=== PATIENT | female | born 1970 | race Two or more races ===

== ENCOUNTER 2019-10-02 15:00 | Emergency (ER) | payer BC ==
--- NOTE | 2019-10-02 15:16 | PDOC ---
History of Present Illness - General Chief Complaint: Substance Abuse Stated Complaint: ALCOHOL WITHDRAWAL Time Seen by Provider: 10/02/19 15:14 History Source: Patient Exam Limitations: No Limitations - History of Present Illness Initial Comments: 10/02/19 15:30 49yF w PMHx alcohol abuse presenting w 1d hot flashes, diaphoresis, tremors, nausea/vomiting, diarrhea. Stopped drinking alcohol 2d ago, was drinking 1.5-2 bottles of wine daily before. Also has 1 week of pink urine. Also lives at home w son who has diarrhea. Did not take any meds for symptoms. Denies fever, cough , chest pain, hallucination, vision change, ABD pain. Quit alcohol 2yrs ago No PCP, open to going to detox. Past History - Past Medical History Allergies/Adverse Reactions: Allergies Allergy/AdvReac Type Severity Reaction Status Date / Time No Known Allergies Allergy Verified 10/02/19 15:11 Home Medications: Ambulatory Orders Chlordiazepoxide [Librium -] 25 mg PO QID #28 capsule MDD 4 10/02/19 Review of Systems - Review of Systems Constitutional: Yes: Diaphoresis, Fever. No: Chills HEENTM: No: Eye Pain, Nose Pain, Mouth Pain Respiratory: No: Cough, Shortness of Breath Cardiac (ROS): No: Chest Pain, Lightheadedness, Palpitations ABD/GI: Yes: Diarrhea, Nausea, Vomiting. No: Abdominal Distended : No: Burning, Dysuria Musculoskeletal: No: Back Pain, Joint Pain Integumentary: No: Bruising, Dryness Neurological: Yes: Tremors. No: Headache, Seizure Psychiatric: No: Anxiety, Depression Endocrine: No: Intolerance to Cold, Intolerance to Heat Hematologic/Lymphatic: No: Anemia, Blood Clots *Physical Exam - Physical Exam General Appearance: Yes: Nourished, Appropriately Dressed, Mild Distress HEENT: positive: EOMI, KERI, Normal Voice, Hearing Grossly Normal. negative: Scleral Icterus (R), Scleral Icterus (L), Rhinorrhea Respiratory/Chest: positive: Lungs Clear, Normal Breath Sounds. negative: Chest Tender, Respiratory Distress Cardiovascular: positive: Regular Rhythm, S1, S2, Tachycardia. negative: Edema , Murmur Gastrointestinal/Abdominal: positive: Normal Bowel Sounds, Flat, Soft. 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 negative: Numbness, Confused, Disoriented ED Treatment Course - LABORATORY CBC & Chemistry Diagram: 10/02/19 16:30 10/02/19 15:55 Medical Decision Making - Medical Decision Making 10/02/19 16:10 49yF w PMHx alcohol abuse presenting w 1d hot flashes, diaphoresis, tremors, nausea/vomiting, diarrhea after stopped drinking wine 2d ago d/t alcohol withdrawal. Given 1L banana bag, thiamine, ativan, zofran, librium x2 DC home w PCP referral, [facility], librium prescription Signed out to night team - DC home after fluids completed Discharge - Discharge Information Problems reviewed: Yes Clinical Impression/Diagnosis: Alcohol withdrawal Qualifiers: Complication of substance-induced condition: uncomplicated Qualified Code(s): F10.230 - Alcohol dependence with withdrawal, uncomplicated Condition: Improved Disposition: HOME - Admission No - Additional Discharge Information Prescriptions: Chlordiazepoxide [Librium -] 25 mg PO QID #28 capsule MDD 4 - Follow up/Referral Referrals: Marcial Robles MD [Staff Physician] - - Patient Discharge Instructions Patient Printed Discharge Instructions: DI for Drug or Alcohol Withdrawal Additional Instructions: Take the prescribed Librium as directed until your symptoms resolve Drink lots of water. Stay away from alcohol Follow up with the referred primary care doctor Consider [facility] for alcohol detox. [facility] [id number] - Post Discharge Activity
[2019-10-02 15:18] VITALS: TEMP 98.8; BMI 17.9
--- NOTE | 2019-10-02 15:33 | PDOC ---
Attending Attestation - Resident Resident Name: David Marrero - ED Attending Attestation I have performed the following: I have examined & evaluated the patient, The case was reviewed & discussed with the resident, I agree w/resident's findings & plan, Exceptions are as noted - HPI HPI: 10/02/19 18:18 Chronic alcohol abuse. Drinking 1-1/2-2 bottles of wine a day for years. Stopped drinking 2 days ago because it was interfering with her family life. In the interim she has been able to take care of her children adequately and maintain her relationship with her . She quit drinking on her own once before, approximately 2 years ago, and remained sober for approximately 1 month , but has been drinking daily since. Present symptoms include nausea, vomiting, diarrhea, hot flashes, diaphoresis, shakiness. There have been no hallucinations, confusion, decreased level of consciousness, or focal neurologic signs or symptoms. No other significant medical or surgical problems and no medications. - Physicial Exam PE: 10/02/19 18:23 Alert and oriented somewhat thin and cachectic appearing female but in no acute distress. She does not appear tremulous at present. She is cooperative, coherent, but affect is somewhat flat and she appears tearful at times. Afebrile, vital signs normal except for mildly elevated blood pressure of 150/ 108. PERRLA 4 mm, fundi benign with sharp disc margins and good central venous pulsations, no AV nicking or arteriolar narrowing, no hemorrhages or exudates. Conjunctivae clear. EOMs full without diplopia. Visual isbell intact to confrontation ENT clear Neck supple without bruit mass or nodes Chest clear, full breath sounds bilaterally CV S1-S2 normal without murmur rub or gallop pulses full and symmetric no JVD or edema no bruits. Regular rate, no tachycardia Abdomen nondistended. Bowel sounds normal. Soft without mass tenderness organomegaly Neurological: C2 to 12 intact. Strength full and symmetric. No focal sensory or motor deficits. DTRs 2+ symmetric. Cerebellar intact. Gait stable and unimpaired. No asterixis, spiders, or palmar erythema 10/02/19 18:24 - Medical Decision Making 10/02/19 18:26 Assessment: Mild to moderate alcohol withdrawal symptoms. No sign of delirium or significant psychological symptoms other than mild depression. Plan: IV fluids, thiamine, folate, and multivitamin supplementation, benzodiazepines, referral to treatment center. Declines admission, but agrees to consult [facility] or other facility as soon as possible.
[2019-10-02] MEDS ORDERED: THIAMINE HCL 200 MG/2 ML VIAL IM ONE (15:49)
[2019-10-02] MEDS ORDERED: FOLIC ACID INJECTION - 1 MG, THIAMINE HCL 100 MG, MULTIVIT INJECTION ADULT 10 ML in SOD... IVPB ONE (15:49)
[2019-10-02] MEDS ORDERED: ONDANSETRON 4 MG/2 ML VIAL IVPUSH ONE (15:49)
[2019-10-02] MEDS ORDERED: FOLIC ACID 5 MG/1 ML ONE (16:11)
[2019-10-02] MEDS ORDERED: THIAMINE HCL 200 MG/2 ML VIAL ONE (16:11)
[2019-10-02] MEDS ORDERED: ONDANSETRON 4 MG/2 ML VIAL ONE (16:11)
[2019-10-02] MEDS ORDERED: MULTIVIT INJ. ADULT COMBO WITH VIT K 1 COMBO 10 ML VIAL IV ONE (16:12)
[2019-10-02] MEDS ORDERED: LORazepam 2 MG/ML SDV VIAL ONE (16:45)
[2019-10-02 16:53] LABS: BASO % 0.4 % (0-2.0); HEMATOCRIT 34.7 % (32.4-45.2); HEMOGLOBIN 11.9 GM/dl (10.7-15.3); LYMPH % 4.6 % (8-40); MCH 36.4 pg (25.7-33.7); MCHC 34.2 g/dl (32.0-36.0); MEAN CELL VOLUME 106.3 fl (80-96); MEAN PLT VOLUME 9.3 fl (7.5-11.1); MONO % 6.4 % (3.8-10.2); NEUT % 88.6 % (42.8-82.8); PLATELET COUNT 128 K/MM3 (134-434); RBC 3.26 M/mm3 (3.60-5.2); RDW 14.3 % (11.6-15.6); WHITE BLOOD COUNT 7.3 K/mm3 (4.0-10.8)
[2019-10-02 16:59] LABS: INR 1.12 (0.82-1.09); PROTHROMBIN TIME (PATIENT) 12.5 SEC (10.2-13.0)
[2019-10-02 17:06] LABS: ALBUMIN 4.2 g/dl (3.4-5.0); ALK PHOS 173 U/L (45-117); ANION GAP 13 MMOL/L (8-16); BILIRUBIN,TOTAL 2.9 mg/dl (0.2-1); CALCIUM 8.7 mg/dl (8.5-10); CHLORIDE 94 mmol/L (98-107); CO2 23 mmol/L (21-32); CREATININE 0.4 mg/dl (0.55-1.3); GLUCOSE,RANDOM 122 mg/dl (74-106); SGPT/ALT 65 U/L (13-61); SODIUM 130 mmol/L (136-145); TOT PROT 7.8 g/dl (6.4-8.2)
[2019-10-02 17:07] LABS: POTASSIUM 4.1 mmol/L (3.5-5.1)
[2019-10-02 17:17] LABS: EPITHELIAL CELLS RARE /hpf
[2019-10-02 17:18] LABS: SGOT/AST 376 U/L (15-37)
[2019-10-02 17:56] LABS: COCAINE, UR NEGATIVE ng/ml (CUTOFF=300); METHADONE, UR NEGATIVE ng/ml (CUTOFF=300); OPIATES, URI NEGATIVE ng/ml (CUTOFF=300); PHENCYCLIDINE,URINE NEGATIVE ng/ml (CUTOFF=25); URINE AMPHETAMINES NEGATIVE ng/ml (CUTOFF=500); URINE BARBITURATES NEGATIVE ng/ml (CUTOFF=200); URINE BENZODIAZEPINES NEGATIVE ng/ml (CUTOFF=200)
[2019-10-02] MEDS ORDERED: chlordiazePOXIDE HCL 25 MG CAPSULE PO ONE ×2 (18:42→18:53)
[2019-10-02] MEDS ORDERED: chlordiazePOXIDE HCL 25 MG CAPSULE ONE ×2 (18:47→18:59)
[2019-10-02 19:28] VITALS: BP 119/79; PULSE 88
== END 2019-10-02 19:28 | disposition home or self-care (01) ==
LOC: FER 15:00 → EDBD 15:00 → FER 19:28
PROC: 3E033GC Introduction of Other Therapeutic Substance into Peripheral Vein, Percutaneous Approach (ICD-10-PCS; principal; 2019-10-02)
PROC: 3E033NZ Introduction of Analgesics, Hypnotics, Sedatives into Peripheral Vein, Percutaneous Approach (ICD-10-PCS; 2019-10-02)
PROC: 3E033GC Introduction of Other Therapeutic Substance into Peripheral Vein, Percutaneous Approach (ICD-10-PCS; 2019-10-02)
DX: F10.230 Alcohol dependence with withdrawal, uncomplicated (principal)
CPT/HCPCS: 36415; 80053; 80307; 81003; 81015; 83690; 85025; 85610; 87086; 99284-25; J7030